=== PATIENT | female | born 1975 | race Native Hawaiian/Other Pacific Islander ===

== ENCOUNTER 2022-03-07 10:35 | Outpatient (CLI) | payer BC, SELFPAY ==
--- NOTE | 2022-03-07 11:18 | W.ANESCHARGE ---
Anesthesia Charges Start Date/Time Anesthesia Start Date: 03/07/22 Anesthesia Start Time: 10:52 Stop Date/Time Anesthesia Stop Date: 03/07/22 Anesthesia Stop Time: 11:16 Summary Emergency: No
--- NOTE | 2022-03-07 12:00 | W.ANESCHARGE ---
Anesthesia Charges Start Date/Time Anesthesia Start Date: 03/07/22 Anesthesia Start Time: 10:52 Stop Date/Time Anesthesia Stop Date: 03/07/22 Anesthesia Stop Time: 11:16 Summary Emergency: No
== END 2022-03-07 10:36 | disposition home or self-care (01) ==
LOC: OP CLINIC 10:36
PROVIDERS: PCP Pediatrics; Visit Provider Internal Medicine Gastroenterology
DX: Z12.11 Encounter for screening for malignant neoplasm of colon (principal)
CPT/HCPCS: 00811; 00812; 45378